=== PATIENT | male | born 1970 | race Two or more races ===

== ENCOUNTER 2021-10-30 19:57 | Emergency (ER) | payer OTHER ==
[~2021-10-30] VITALS: Ht 182.9 cm; Wt 163.3 kg
[2021-10-30] MEDS ORDERED: KETO10TA2 PO (22:26)
== END 2021-10-30 22:31 | disposition home or self-care (01) ==
LOC: ER 19:57
DX: S90.32XA Contusion of left foot, initial encounter (principal); X58.XXXA Exposure to other specified factors, initial encounter; Y92.9 Unspecified place or not applicable; E11.9 Type 2 diabetes mellitus without complications; M79.672 Pain in left foot

== ENCOUNTER 2023-08-14 22:24 | Emergency (ER) | payer OTHER ==
[~2023-08-14] VITALS: Ht 182.9 cm; Wt 159.7 kg
[~2023-08-14 22:24] MED LIST: KETO10TA2 PO
[2023-08-15] MEDS ORDERED: DICLOFENAC POTA50 MG PO (03:59)
== END 2023-08-15 04:06 ==
LOC: ER 22:24
DX: S62.394A Other fracture of fourth metacarpal bone, right hand, initial encounter for closed fracture (principal); X58.XXXA Exposure to other specified factors, initial encounter; Y93.89 Activity, other specified; Y92.89 Other specified places as the place of occurrence of the external cause